=== PATIENT | female | born 1985 | race African-American/Black ===

== ENCOUNTER 2020-02-15 15:30 | Emergency (ER) | payer OTHER ==
[~2020-02-15] VITALS: Ht 162.6 cm; Wt 65.5 kg
[2020-02-15] MEDS ORDERED: LISINOPRIL5 MG PO (15:56)
[2020-02-15] MEDS ORDERED: AMITRIPTYLINE H25 MG PO (15:56)
[2020-02-15] MEDS ORDERED: HYDROCHLOROTHIA25 MG (15:56)
[2020-02-15 16:22] VITALS: BP 134/87
[2020-02-15] MEDS ORDERED: CLONIDINE HCL 0.1 MG TAB ONE (16:22)
--- NOTE | 2020-02-15 16:35 | Emergency Department Note ---
History of Present Illnes History of Present Illness Chief Complaint: Chest Pain History of Present Illness This is a 34 year old female AAF, hx htn on lisinopril 10 mg, HCTZ 25mg daily. She Reports that she had chest pain "dull like" on and off for 1 day. She went to last night, had cardiac work up, CT PE protocol, then d/c to f/u with her doctor next week. She went home from [facility] at 0400 this morning after being there all night. She is her asking to be prescribed some blood pressure medication as her bottom number is high at 105. Pt states that she has not slept or eaten since yesterday and she is still having chest pain and is worried about her blood pressure being high. 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 Pt has multiple complaints and states that she was going to go to [facility] as she did not want to waste our time but she let us do an EKG and an assessment and is now talking to Dr. Duran. Pt is very anxious and worried about her heart and blood pressure. Pt does not want to have another work or to be admitted at [facility], she just wants her BP to better. Historian: Patient Arrival Mode: Car Onset (how long ago): day(s) Radiation: Reports non-radiation Severity: moderate Onset quality: gradual Duration (how long): day(s) Progression: waxing and waning Relieving factors: none Associated symptoms: Reports denies other symptoms Treatments prior to arrival: none Previous service: tests performed Past Medical/Family History Physician Review I have reviewed the patient's past medical and family history. Any updates have been documented here. Past Medical History Recent Fever: No Clinical Suspicion of Infectio: No New/Unexplained Change in Ment: No Past Medical History: Hypertension, Migraines Other Medical History: PCOS hx of abnormal EKG Past Surgical History: None Social History Smoking Cessation: Never Smoker Counseling Performed: No Alcohol Use: Occasional Any Illegal Drug Use: No Physically hurt or threatened: No Family History Other family history Aunt has heart attack in the 60's of age Other Any Pre-Existing Lines (PICC,: No Review of Systems Review of Systems Constitutional: Reports no symptoms EENTM: Reports no symptoms Cardiovascular: Reports chest pain Respiratory: Reports no symptoms Gastrointestinal: Reports no symptoms Genitourinary: Reports no symptoms Musculoskeletal: Reports no symptoms Integumentary: Reports no symptoms Neurological: Reports no symptoms Psychological: Reports no symptoms Endocrine: Reports no symptoms Hematological/Lymphatic: Reports no symptoms Physical Exam Related Data Allergies: Coded Allergies: No Known Allergies (Unverified , 02/15/20) Triage Vital Signs Vital Signs Date Time Temp Pulse Resp B/P (MAP) Pulse Ox O2 Delivery O2 Flow Rate FiO2 02/15/20 15:30 99.1 90 16 138/89 100 Room Air Physical Exam CONSTITUTIONAL Constitutional: Present well-developed, Present well-nourished HENT HENT: Present normocephalic, Present atraumatic, Present oropharynx clear/moist, Present nose normal HENT L/R: Present left ext ear normal, Present right ext ear normal EYES Eyes: Reports PERRL, Reports conjunctivae normal NECK Neck: Present ROM normal PULMONARY Pulmonary: Present effort normal, Present breath sounds normal CARDIOVASCULAR Cardiovascular: Present regular rhythm, Present heart sounds normal, Present capillary refill normal, Present normal rate GASTROINTESTINAL Abdominal: Present soft, Present nontender, Present bowel sounds normal GENITOURINARY Genitourinary: Present exam deferred SKIN Skin: Present warm, Present dry MUSCULOSKELETAL Musculoskeletal: Present ROM normal NEUROLOGICAL Neurological: Present alert, Present oriented x 3, Present no gross motor or sensory deficits PSYCHOLOGICAL Psychological: Present mood/affect normal, Present judgement normal Procedures 12 Lead ECG Interpretation ECG Interpretation : ECG: ECG 1 Credit Associate: Interpreted by ED physician Date: Feb 15, 2020 Time: 15:40 Prior ECG tracings: reviewed (about the same EKG done at last night) Rhythm: sinus rhythm BPM: 81 QRS axis: normal ST segment flattening: V4, V5, V6 T wave inversion: aVR, V1, V2, V3, V4 Clinical Impression: non-specific ECG Additional Comments no changes compared to her EKG done at last night Assessment & Plan Medical Decision Making [facility] htn uncontrolled, ACS, GERD Reassessment Reassessment time: 16:23 Reassessment in [facility] Assessment & Plan Final Impression: (1) Hypertension, uncontrolled (2) Chest pain, unspecified Depart Disposition: HOME, SELF-CARE Last Vital Signs Date Time Temp Pulse Resp B/P (MAP) Pulse Ox O2 Delivery O2 Flow Rate FiO2 02/15/20 15:30 99.1 90 16 138/89 100 Room Air Home Meds Reported Medications Amitriptyline Hcl (AMITRIPTYLINE HCL) 25 Mg Tablet, 25 MG PO DAILY, #30 TAB 02/15/20 Lisinopril (LISINOPRIL) 5 Mg Tablet, 5 MG PO DAILY, #30 TAB 02/15/20 Hydrochlorothiazide (HYDROCHLOROTHIAZIDE) 25 Mg Tablet, 25 MG DAILY, #30 TAB 02/15/20 Medications in the ED Clonidine HCl 0.1 mg STK-MED ONCE .ROUTE ; Start 02/15/20 at 16:22; Stop 02/15/20 at 16:16; Status DC Physician Attestation Provider Attestation I rec full cardiac work and admit to observation with crusher plant operator consult but pt repeatedly declined as she has to go to work tomorrow. She worried about her BP so I rec to double the dose of Lisinopril, add ASA 325 daily. YULI DURAN MD Feb 15, 2020 16:35
--- OUTSIDE RECORDS SUMMARY | 2020-02-15 16:37 | XMS REPORT | Continuity of Care Document ---
Author Author [id number] Just[employer] Information [place] Address Unknown Phone Unavailable Care Team Providers Care Software Test Analyst Name Role Phone JustBook Information Exchange Unavailable Un available Problems Problem Status Onset Date Classification Date Reported Comments Source Essential hypertension Active Diagnosis 10/09/2019 [facility] Primary Other headache syndrome Active Problem 10/09/2019 [facility] Primary Tension headache Active Diagnosis 10/09/2019 [facility] Primary Anxiety Active Diagnosis 10/09/2019 [facility] Primary Stress Active Diagnosis 10/09/2019 [facility] Primary Worms in stool Active Diagnosis 10/09/2019 [facility] Primary Low vitamin D level Active Diagnosis 10/09/2019 [facility] Primary Medications Medication Details Route Status Patient Instructions Ordering Provider Order Date Source Escitalopram Oxalate 1 tablet Orally Active 10 mg Orally Once every morning Juan David 06/13/2018 [facility] Primary Amitriptyline HCl 1 tablet Orally Active 10 mg Orally once every night Juan David 06/13/2018 [facility] Primary Lisinopril 1 tablet Orally Active 10 mg Orally Once a day Juan David 08/19/2017 [facility] Primary Verapamil HCl CR 1 capsule Orally Active 180 MG Orally Once a day Juan David 07/27/2017 [facility] Primary Lisinopril 1 tablet Orally Active 10 mg Orally Once a day [facility] Primary Allergies, Adverse Reactions, Alerts Substance Category Reaction Severity Reaction type Status Date Reported Comments Source N.K.D.A. Adverse Reaction Info Not Available Adverse Reaction 10/08/2019 [facility] Primary Immunizations No Data Provided for This Section Results No Data Provided for This Section Pathology Reports No Data Provided for This Section Diagnostic Reports No Data Provided for This Section Consultation Notes No Data Provided for This Section Discharge Summaries No Data Provided for This Section History and Physicals No Data Provided for This Section Vital Signs Vital Sign Value Date Comments Source Weight 152.0 04/02/2019 [facility] Primary Height 66 1 [facility] Primary Temperature Oral (F) 97.4 F 04/02/2019 [facility] Primary Heart Rate 71 04/02/2019 [facility] Primary Diastolic (mm Hg) 79 04/02/2019 [facility] Primary Systolic (mm Hg) 122 04/02/2019 [facility] Primary Weight 152.0 06/13/2018 [facility] Primary Height 66 1 08/14/2017 [facility] Primary Temperature Oral (F) 98.5 F 06/13/2018 [facility] Primary Heart Rate 75 06/13/2018 [facility] Primary Diastolic (mm Hg) 89 06/13/2018 [facility] Primary Systolic (mm Hg) 133 06/13/2018 [facility] Primary Weight 152.9 05/05/2018 [facility] Primary Height 66 1 07/05/2017 [facility] Primary Temperature Oral (F) 98.0 F 05/05/2018 [facility] Primary Heart Rate 88 05/05/2018 [facility] Primary Diastolic (mm Hg) 84 05/05/2018 [facility] Primary Systolic (mm Hg) 133 05/05/2018 [facility] Primary Weight 147.9 10/04/2017 [facility] Primary Height 66 0 10/04/2017 [facility] Primary Temperature Oral (F) 97.5 F 10/04/2017 [facility] Primary Heart Rate 79 10/04/2017 [facility] Primary Diastolic (mm Hg) 88 10/04/2017 [facility] Primary Systolic (mm Hg) 129 10/04/2017 [facility] Primary Weight 146.7 08/19/2017 [facility] Primary Height 66 0 08/19/2017 [facility] Primary Temperature Oral (F) 97.2 F 08/19/2017 [facility] Primary Heart Rate 69 08/19/2017 [facility] Primary Diastolic (mm Hg) 118 08/19/2017 [facility] Primary Systolic (mm Hg) 161 08/19/2017 [facility] Primary Weight 147.2 07/27/2017 [facility] Primary Height 66 0 07/27/2017 [facility] Primary Temperature Oral (F) 98.1 F 07/27/2017 [facility] Primary Heart Rate 76 07/27/2017 [facility] Primary Diastolic (mm Hg) 98 07/27/2017 [facility] Primary Systolic (mm Hg) 170 07/27/2017 [facility] Primary Encounters No Data Provided for This Section Procedures No Data Provided for This Section Assessment and Plan No Data Provided for This Section Plan of Care No Data Provided for This Section Social History No Data Provided for This Section Family History No Data Provided for This Section Advance Directives No Data Provided for This Section Functional Status No Data Provided for This Section
--- OUTSIDE RECORDS SUMMARY | 2020-02-15 16:37 | XMS REPORT | Continuity of Care Document ---
Author Author [facility] t Organization [facility] Address [address] [place] [address] Phone Unavailable Care Team Providers Care Cloth Shrinker Name Role Phone Unavailable Unavailable Problems Condition Name Condition Details Condition Category Status Onset Date Resolution Date Last Treatment Date Treating Clinician Comments Source Essential hypertension Esse ntial hypertension Active Diagnosis 10/09/2019 [facility] Active 2019-10-09 0 2:45:13 Grzegorz Carter Other headache syndrome Othe r headache syndrome Active Problem 10/09/2019 [facility] Primary Problem Active 2019-10-09 02: 45:13 Grzegorz Carter Tension headache Tens ion headache Active Diagnosis 10/09/2019 [facility] Primary Diagnosis Active 2019-10-09 02:45:1 3 Grzegorz Carter Anxiety Anxi ety Active Diagnosis 10/09/2019 [facility] Primary Diagnosis Active 2019-10-09 02:45:13 Me casper Carter Stress Stre ss Active Diagnosis 10/09/2019 [facility] Primary Diagnosis Active 2019-10-09 02:45:13 Me casper Carter Worms in stool Worm s in stool Active Diagnosis 10/09/2019 [facility] Primary Diagnosis Active 2019-10-09 02:45:1 3 Grzegorz Carter Low vitamin D level Low vitamin D level Active Diagnosis 10/09/2019 [facility] Primary Diagnosis Active 2019-10-09 02:45:1 3 Grzegorz Carter Allergies, Adverse Reactions, Alerts Allergy Name Allergy Type Status Severity Reaction(s) Onset Date Inacti ve Date Treating Clinician Comments Source N.K.D.A. N.K.D.A. Active Info Not Available 2019-10-08 00:00:00 Grzegorz Carter Medications Ordered Medication Name Filled Medication Name Start Date Stop Da te Current Medication? Ordering Clinician Indication Dosage Frequency Signature (SIG) Comments Components Source Lisinopril 2019-10-09 02:45:13 Yes Winifred Juan David 1 tablet [facility] Escitalopram Oxalate 2018-06-13 00:00:00 Yes Winifred Juan David 1 tablet [facility] Amitriptyline HCl 2018-06-13 00:00:00 Yes Winifred Juan Dvaid 1 tablet [facility] Lisinopril 2017-08-19 00:00:00 Yes Winifred Juan David 1 tablet [facility] Verapamil HCl CR 2017-07-27 00:00:00 Yes Winifred Juan David 1 capsule [facility] Vital Signs Vital Name Observation Time Observation Value Comments Source Weight 2019-04-02 13:00:00 [facility] Height 2019-04-02 13:00:00 [facility] Temperature Oral (F) 2019-04-02 13:00:00 97.4 F [facility] Heart Rate 2019-04-02 13:00:00 [facility] Diastolic (mm Hg) 2019-04-02 13:00:00 [facility] Systolic (mm Hg) 2019-04-02 13:00:00 [facility] Weight 2018-06-13 19:45:00 [facility] Height 2018-06-13 19:45:00 [facility] Temperature Oral (F) 2018-06-13 19:45:00 98.5 F [facility] Heart Rate 2018-06-13 19:45:00 [facility] Diastolic (mm Hg) 2018-06-13 19:45:00 [facility] Systolic (mm Hg) 2018-06-13 19:45:00 [facility] Weight 2018-05-05 19:45:00 [facility] Height 2018-05-05 19:45:00 [facility] Temperature Oral (F) 2018-05-05 19:45:00 98.0 F [facility] Heart Rate 2018-05-05 19:45:00 [facility] Diastolic (mm Hg) 2018-05-05 19:45:00 [facility] Systolic (mm Hg) 2018-05-05 19:45:00 [facility] Weight 2017-10-04 13:15:00 [facility] Height 2017-10-04 13:15:00 [facility] Temperature Oral (F) 2017-10-04 13:15:00 97.5 F [facility] Heart Rate 2017-10-04 13:15:00 [facility] Diastolic (mm Hg) 2017-10-04 13:15:00 [facility] Systolic (mm Hg) 2017-10-04 13:15:00 [facility] Weight 2017-08-19 14:45:00 [facility] Height 2017-08-19 14:45:00 [facility] Temperature Oral (F) 2017-08-19 14:45:00 97.2 F [facility] Heart Rate 2017-08-19 14:45:00 [facility] Diastolic (mm Hg) 2017-08-19 14:45:00 [facility] Systolic (mm Hg) 2017-08-19 14:45:00 [facility] Weight 2017-07-27 14:00:00 [facility] Height 2017-07-27 14:00:00 [facility] Temperature Oral (F) 2017-07-27 14:00:00 98.1 F [facility] Heart Rate 2017-07-27 14:00:00 [facility] Diastolic (mm Hg) 2017-07-27 14:00:00 [facility] Systolic (mm Hg) 2017-07-27 14:00:00 [facility] Procedures This patient has no known procedures. Encounters Start Date/Time End Date/[facility] Source 2020-02-14 21:58:00 2020-02-14 21:58:00 Emergency E [id number] 2019-10-08 10:00:00 2019-10-08 10:00:00 Outpatient [facility] Care [facility] [id number] [facility] 2019-04-02 08:00:00 2019-04-02 08:00:00 Outpatient [facility] Care [facility] [id number] [facility] 2019-03-10 11:49:00 2019-03-10 11:49:00 Emergency E [id number] 2018-06-13 13:45:00 2018-06-13 13:45:00 Outpatient [facility] Care [facility] [id number] [facility] 2018-05-05 13:45:00 2018-05-05 13:45:00 Outpatient [facility] [id number] [facility] 2017-11-22 14:27:00 2017-11-22 14:27:00 Outpatient [facility] Primary Care [facility] [id number] [facility] 2017-10-04 08:15:00 2017-10-04 08:15:00 [facility] Primary Care [facility] [id number] [facility] 2017-09-26 20:46:00 2017-09-26 20:46:00 [facility] Primary Care [facility] [id number] [facility] 2017-08-19 08:45:00 2017-08-19 08:45:00 [facility] Primary Care [facility] [id number] [facility] 2017-07-27 08:00:00 2017-07-27 08:00:00 [facility] [id number] [facility] Results This patient has no known results.
[2020-02-16] MEDS ORDERED: CLONIDINE HCL 0.1 MG TAB PO ONE (19:15)
== END 2020-02-15 16:34 | disposition home or self-care (01) ==
LOC: FSED 16:00
DX: R07.9 Chest pain, unspecified (principal); I10 Essential (primary) hypertension; E28.2 Polycystic ovarian syndrome
CPT/HCPCS: 93005; 99283